=== PATIENT | female | born 1980 | race Two or more races ===

== ENCOUNTER 2022-10-17 08:43 | Outpatient (CLI) | payer OTHER | END 2022-10-17 23:59 | disposition home or self-care (01) | LOC: WOU 08:43 | PROVIDERS: ATTEND Specialist | DX: Z01.818 Encounter for other preprocedural examination (principal); N64.2 Atrophy of breast; Z20.822 Contact with and (suspected) exposure to COVID-19 | CPT/HCPCS: 71046; G0463 ==